=== PATIENT | male | born 1935 | race Caucasian/White ===

== ENCOUNTER 2017-08-23 10:05 | Observation (INO) | payer MEDICARE, BC ==
[~2017-08-23] VITALS: Ht 172.7 cm; Wt 73.9 kg
[~2017-08-23 10:05] MED LIST: BUPIVACAINE LIPOSOME/PF INFIL ONE; MAGN400C PO; OLME5TAB4 PO; OMEP10CA4 PO; Vitamin D PO
[2017-08-23] MEDS ORDERED: TRANEXAMIC ACID 100 MG/ML, 10ML ONE ×2 (11:12)
[2017-08-23] MEDS ORDERED: VANCOMYCIN 1,000 MG ONE (11:12)
[2017-08-23] MEDS ORDERED: BUPIVACAINE/PF 0.5% ONE (11:12)
[2017-08-23 12:17] LABS: BASOPHILS # (AUTO) 0.01 x10^3/uL (0-0.1); BASOPHILS % (AUTO) 0 % (0-1); EOSINOPHILS # (AUTO) 0.03 x10^3/uL (0-0.4); EOSINOPHILS % (AUTO) 1 % (1-7); LYMPHOCYTES # (AUTO) 1.07 x10^3/uL (1-3.4); LYMPHOCYTES % (AUTO) 21 % (22-44); MD NO; MEAN CORPUSCULAR HEMOGLOBIN 34.7 pg (27.5-34.5); MEAN CORPUSCULAR HGB CONC 34.3 g/dL (33.2-36.2); MEAN CORPUSCULAR VOLUME 101.3 fL (81-97); MEAN PLATELET VOLUME 8.9 fL (7.4-10.4); MICROSCOPIC AUTO; MONOCYTES % (AUTO) 10 % (2-9); NEUTROPHILS # (AUTO) 3.48 x10^3/uL (1.8-6.8); NEUTROPHILS % (AUTO) 68 % (42-75); PLATELET COUNT 149 x10^3/uL (130-400); RED BLOOD COUNT 5.08 x10^6/uL (4.38-5.82); RED CELL DISTRIBUTION WIDTH 13.3 % (9.4-14.8)
[2017-08-23 12:21] LABS: CULTURE INDICATED? NO
[2017-08-23 12:26] LABS: ALBUMIN 4.2 g/dL (3.4-5.0); ANION GAP 7 mmol/L (5-15); CALCIUM 8.7 mg/dL (8.5-10.1); CHLORIDE 103 mmol/L (98-107)
[2017-08-23 12:29] LABS: ALANINE AMINOTRANSFERASE 66 U/L (12-78); ALKALINE PHOSPHATASE 83 U/L (45-117); BILIRUBIN,TOTAL 2.2 mg/dL (0.2-1.0); TOTAL PROTEIN 7.2 g/dL (6.4-8.2)
[2017-08-23] MEDS: LACTATED RINGERS 1,000 ML IV SCH ×2 (12:35→22:49)
[2017-08-23] MEDS ORDERED: NEOSTIGMINE 1 MG/ML, 10ML ONE (15:19)
[2017-08-23] MEDS ORDERED: GLYCOPYRROLATE 0.2MG/1ML, 5ML ONE (15:19)
[2017-08-23] MEDS ORDERED: PHENYLEPHRINE 10 MG/ML ONE (15:19)
[2017-08-23] MEDS ORDERED: ROCURONIUM 10 MG/ML,10ML ONE (15:19)
[2017-08-23] MEDS ORDERED: KETOROLAC 30 MG/1 ML ONE (15:19)
[2017-08-23] MEDS ORDERED: PROPOFOL 10 MG/ML, 20ML ONE (15:19)
[2017-08-23] MEDS ORDERED: CEFAZOLIN 1,000 MG ONE (15:19)
[2017-08-23] MEDS ORDERED: hydrALAzine 20 MG/ML, 1ML IV PRN (15:30)
[2017-08-23] MEDS ORDERED: MEPERIDINE/PF 25MG/0.5ML IVPush PRN (15:30)
[2017-08-23] MEDS ORDERED: PROMETHAZINE 12.5 MG SUPP PR PRN (15:30)
[2017-08-23] MEDS ORDERED: OXYcodone 5 MG/5 ML ORAL.SOL UDC PO PRN (15:30)
[2017-08-23] MEDS ORDERED: HYDROmorphone 1 MG/ML, 1ML IVPush PRN (15:30)
[2017-08-23] MEDS ORDERED: PHARMACY MAY ADJ FOR RENAL FX MC PRN (15:30)
[2017-08-23] MEDS ORDERED: PROMETHAZINE 25 MG/ML, 1ML IV PRN (15:30)
[2017-08-23] MEDS ORDERED: HYDROmorphone 1 MG/ML, 1ML IV PRN (15:30)
[2017-08-23] MEDS ORDERED: morphine SULFATE 10 MG/ML, 1ML IV PRN (15:30)
[2017-08-23] MEDS ORDERED: LABETALOL 5MG/ML, 20ML IV PRN (15:30)
[2017-08-23] MEDS ORDERED: ONDANSETRON 2MG/ML, 2ML IVPush PRN ×2 (15:30→20:30)
[2017-08-23] MEDS ORDERED: OXYcodone 5 MG/5 ML ORAL.SOL UDC ONE (18:27)
[2017-08-23] MEDS ORDERED: ACETAMINOPHEN 650 MG/20.3 ML UDC ONE (18:27)
[2017-08-23] MEDS: ACETAMINOPHEN 325 MG TABLET PO PRN (18:30)
[2017-08-23] MEDS ORDERED: ONDANSETRON 2MG/ML, 2ML ONE (18:31)
[2017-08-23] MEDS ORDERED: EPHEDRINE 50 MG/ML, 1ML ONE (18:58)
[2017-08-23] MEDS ORDERED: FENTANYL PF 100 MCG/2ML ONE (18:59)
[2017-08-23] MEDS: FENTANYL PF 100 MCG/2ML IV PRN ×2 (19:17→19:27)
[2017-08-23 19:23] LABS: BASOPHILS # (AUTO) 0.06 x10^3/uL (0-0.1); BASOPHILS % (AUTO) 1 % (0-1); EOSINOPHILS # (AUTO) 0.07 x10^3/uL (0-0.4); EOSINOPHILS % (AUTO) 1 % (1-7); LYMPHOCYTES # (AUTO) 1.34 x10^3/uL (1-3.4); LYMPHOCYTES % (AUTO) 23 % (22-44); MD NO; MEAN CORPUSCULAR HEMOGLOBIN 35.3 pg (27.5-34.5); MEAN CORPUSCULAR HGB CONC 34.3 g/dL (33.2-36.2); MEAN CORPUSCULAR VOLUME 102.9 fL (81-97); MEAN PLATELET VOLUME 8.2 fL (7.4-10.4); MONOCYTES # (AUTO) 0.47 x10^3/uL (0.2-0.8); MONOCYTES % (AUTO) 8 % (2-9); NEUTROPHILS # (AUTO) 3.93 x10^3/uL (1.8-6.8); NEUTROPHILS % (AUTO) 67 % (42-75); PLATELET COUNT 130 x10^3/uL (130-400); RED BLOOD COUNT 4.17 x10^6/uL (4.38-5.82); RED CELL DISTRIBUTION WIDTH 13.1 % (9.4-14.8)
[2017-08-23] MEDS ORDERED: EPHEDRINE 50 MG/ML, 1ML IVPush PRN (19:30)
[2017-08-23] MEDS: TIZANIDINE 4MG TABLET PO SCH (20:46)
[2017-08-23] MEDS ORDERED: ONDANSETRON ODT 4 MG PO PRN (21:00)
[2017-08-23] MEDS ORDERED: HYDROmorphone 2 MG/ML, 1ML ONE (21:07)
[2017-08-23] MEDS: CEFAZOLIN PMX 1GM/50ML 50 ML IVPB SCH (23:48)
[2017-08-24 02:03] VITALS: BP_SYST 140; BP_SYST 90; BP_DIAS 54; BP_DIAS 63
[2017-08-24] MEDS: OXYcodone/APAP 5/325MG TABLET PO PRN ×2 (02:52→12:17)
[2017-08-24 04:26] VITALS: BP 118/69
[2017-08-24] MEDS ORDERED: OMEPRAZOLE 10 MG CAPSULE.DR ONE (05:47)
[2017-08-24] MEDS: TIZANIDINE 4MG TABLET PO SCH (05:48)
[2017-08-24 07:11] VITALS: BP 100/51
[2017-08-24] MEDS ORDERED: CEFAZOLIN PMX 1GM/50ML 50 ML ONE (07:40)
[2017-08-24] MEDS: CEFAZOLIN PMX 1GM/50ML 50 ML IVPB SCH (07:42)
[2017-08-24] MEDS ORDERED: OMEPRAZOLE 10 MG CAPSULE.DR PO SCH (09:00)
[2017-08-24] MEDS ORDERED: TIZA4CAP2 PO (11:48)
[2017-08-24] MEDS ORDERED: OXYC-302 PO (11:49)
[2017-08-24] MEDS ORDERED: ONDA8TAB12 PO (11:50)
== END 2017-08-24 12:30 | disposition home or self-care (01) ==
LOC: OUT 10:05 → ORIP 15:06 → 4NOR 20:10
PROVIDERS: ADMIT Orthopaedic Surgery Orthopaedic Surgery of the Spine; ATTEND Orthopaedic Surgery Orthopaedic Surgery of the Spine
DX: M48.061 Spinal stenosis, lumbar region without neurogenic claudication (principal)
CPT/HCPCS: 36415; 63030; 71045; 72100; 80053; 81001; 85025; 96365; 96375; 97162; 97165; C9290; G0378; G8978; G8979; G8980; J0690; J1170; J1885; J2370; J2405; J2704; J2710; J3010; J3370; J3490; J7120; Q0162